=== PATIENT | male | born 1995 | race Caucasian/White ===

== ENCOUNTER 2017-08-11 18:45 | Emergency (ER) | payer BC ==
[2017-08-11] MEDS ORDERED: ONDANSETRON 4 MG TAB.RAPDIS PO ONE (21:02)
[2017-08-11] MEDS ORDERED: ONDANSETRON HCL 8 MG TABLET ONE (21:06)
[2017-08-11] MEDS ORDERED: ONDANSETRON 4 MG TAB.RAPDIS ONE (21:09)
--- NOTE | 2017-08-11 21:13 | ERNOTE ---
Medical Problem HPI - Narrative Date of Service: 08/11/17 - General Chief Complaint: Nausea/Vomiting Time Seen by Provider: 08/11/17 20:35 Source: patient, RN notes reviewed Exam Limitations: no limitations - Immun/Allergies/Home Medications Immunizations: IMMUNIZATION HX Immunizations Up to Date Yes History of Influenza Vaccine No Hx Pneumococcal Vaccination No Allergies/Adverse Reactions: Allergies No Known Allergies Allergy (Verified 08/11/17 19:15) Home Medications: HOME MEDICATIONS Ondansetron [Zofran Odt] 8 mg PO Q8H PRN #12 tab 08/11/17 [Last Taken Unknown] - History of Present History Narrative: Talon is a 22 year old male that presents to the ED for vomiting and diarrhea that began this morning. His girlfriend has the same symptoms. He is currently tolerating drinking Mt. Dew without vomiting. Date (Duration): 08/11/17 Time (Timing): 08:00 Review of Systems - Review of Systems Constitutional: Present: fever, chills, malaise, decreased activity level EYE: Present: no symptoms reported ENT: Absent: nose congestion, sore throat Respiratory: Absent: shortness of breath, cough Cardiology: Absent: chest pain, palpitations, syncope Gastrointestinal/Abdominal: Present: nausea, vomiting, diarrhea, eating less, drinking less. Absent: abdominal pain Genitourinary: Absent: dysuria, decreased urinary output Musculoskeletal: Absent: muscle pain, joint pain Skin: Absent: lesions, lumps, change in color Neurological: Present: headache, dizziness/light-headedness Endocrine: Present: no symptoms reported Hematologic/Lymphatic: Present: no symptoms reported Psych: Present: no symptoms reported - Patient's Past Medical History Patient History - Medical: No pertinent hx, Other Patient History - Cardiac/Respiratory: No pertinent hx Patient History - Cancer: No Hx of Cancer Patient History - Surgical Procedures: No surgical history Patient History - Other: None - Social History Living Situations: significant other Psych History: No pertinent hx Smoking Status: Current every day smoker Cigarettes Packs Per Day: 1 Alcohol Use: none Drug Use: none - Immunizations Immunizations Up to Date: Yes Hx Pneumococcal Vaccination: No History of Influenza Vaccine: No Physical Exam - Physical Exam General Appearance: Present: alert, no apparent distress, thin Head Exam: Present: normal inspection Eye Exam: Normal inspection: bilateral Ears, Nose, Throat: Present: normal ENT inspection, normal pharynx Neck: Present: normal inspection, nontender, supple Respiratory: Present: no respiratory distress, normal breath sounds, no accessory muscle use, lungs clear Cardiovascular/Chest: Present: regular rate, rhythm, no murmur Gastrointestinal/Abdominal: Present: normal bowel sounds, nontender, nondistended, soft Back Exam: Present: normal inspection, no CVA tenderness Extremity Exam: Present: normal inspection, normal range of motion, no edema Neurological Exam: Present: alert, oriented, normal mood/affect, no motor/ sensory deficits Skin Exam: Present: normal color, warm/dry ED Progress - Results and Orders Patient's Lab Results:: I have reviewed the patient's lab results. - Vital Signs Patient's Vital Signs:: I have reviewed the patient's vital signs. Vital Signs: Vital Signs 08/11/17 19:12 Temperature 37.9 C H Pulse Rate 104 H Respiratory 15 Rate Blood Pressure 120/65 O2 Sat by Pulse 100 Oximetry - Progress/Reassessment Chief Complaint: Nausea/Vomiting Progress:: Unchanged Departure Clinical Impression: Viral gastroenteritis - Departure Disposition: Home self-care Condition: Stable Instructions: Viral Gastroenteritis, Adult, [id number], Form - Excuse from Work, School, or Physical Activity Prescriptions: Ondansetron [Zofran Odt] 8 mg PO Q8H PRN #12 tab PRN Reason: Nausea
[2017-08-11 21:21] VITALS: BP 120/51
== END 2017-08-11 21:20 | disposition home or self-care (01) ==
LOC: ER 18:45
DX: A08.4 Viral intestinal infection, unspecified (principal); F17.210 Nicotine dependence, cigarettes, uncomplicated